=== PATIENT | female | born 1955 | race Caucasian/White ===

== ENCOUNTER 2017-06-04 05:31 | Emergency (ER) | payer BC, OTHER ==
[2017-06-04 05:59] VITALS: BP 126/80
--- NOTE | 2017-06-04 06:06 | Emergency Department Report ---
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 Patient denied a sore some flying by some insects in the triage room and she was working. Patient inspected her abdomen and saw a red bite lopez that began itching. Patient states she was admitted to one of the insects and looked like a brown blood with 4 legs. She denies fevers/chills/nausea/vomiting/abdominal pain chest pain or any other problems ED Past Medical Hx - Past Medical History Previous Medical History?: Yes Hx Hypertension: No Hx Congestive Heart Failure: No Hx Renal Disease: No Hx HIV: No Additional medical history: HIATAL HERNIA / IBS / RSD - Surgical History Past Surgical History?: Yes Hx Breast Surgery: Yes (EXCISION CYST RIGHT BREAST IN 1969) Additional Surgical History: RECTOCELE/ENTEROCELE REPAIR. RIGHT 5TH TOE. Rt Wrist - Social History Smoking Status: Never Smoker Substance Use Type: None - Medications Home Medications: Home Medications Medication Instructions Recorded Confirmed Last Taken Type Aspirin EC [Aspirin Enteric Coated 160 mg PO QDAY 08/01/14 09/17/15 09/13/15 History TAB] Cholecalciferol (Vitamin D3) 2,000 unit PO QDAY 08/01/14 09/17/15 3 Days Ago History [Vitamin D3 2,000 unit] Docusate Sodium [Colace CAP] 100 mg PO QDAY 08/01/14 09/17/15 3 Days Ago History Ascorbic Acid [Vitamin C] 500 mg PO QDAY 09/17/15 09/17/15 3 Days Ago History [place]-3 Fatty Acids/Fish Oil [Fish 1 each PO QDAY 09/17/15 09/17/15 3 Days Ago History Oil 1,000 mg Softgel] Ketorolac [Toradol] 10 mg PO Q6H PRN #10 tablet 09/19/15 Unknown Rx HYDROcodone/APAP 7.5-325 [[place] 1 each PO Q8HR PRN #20 tablet 03/01/16 Unknown Rx 7.5/325] Hydrocortisone/Aloe Vera 1 applic TP TID #1 tube 06/04/17 Unknown Rx [Cortizone-10 1% Creme] Neomy/Baci/Polymyx/Hc Top Oint 1 applic TP TID #30 gm 06/04/17 Unknown Rx [Cortisporin TOPICAL Oint] diphenhydrAMINE [Benadryl CAP] 25 mg PO QHS PRN #30 capsule 06/04/17 Unknown Rx predniSONE [Deltasone] 5 mg PO QDAY #5 tab 06/04/17 Unknown Rx ED Review of Systems ROS: Stated complaint: BUG BITES Other details as noted in HPI Constitutional: denies: chills, fever Eyes: denies: eye pain, eye discharge, vision change ENT: denies: ear pain, throat pain Respiratory: denies: cough, shortness of breath, wheezing Cardiovascular: denies: chest pain, palpitations Endocrine: no symptoms reported Gastrointestinal: denies: abdominal pain, nausea, diarrhea Genitourinary: denies: urgency, dysuria, discharge Musculoskeletal: denies: back pain, joint swelling, arthralgia Skin: rash, pruritus. denies: lesions Neurological: denies: headache, weakness, numbness, paresthesias, confusion Psychiatric: denies: anxiety, depression Hematological/Lymphatic: denies: easy bleeding, easy bruising Physical Exam - Physical Exam Vital Signs: Vital Signs 06/04/17 05:54 Temperature 98.1 F Pulse Rate 89 Respiratory 18 Rate Blood Pressure 126/80 O2 Sat by Pulse 98 Oximetry Physical Exam: GENERAL: Alert and oriented x3, no apparent distress, Normal Gait, atraumatic. HEAD: Head is normocephalic and a-traumatic. EYES: Extra ocular muscles are intact. Pupils are equal, round, and reactive to light and accommodation. LUNGS: Symetrical with respiration, No wheezing, no rales or crackles, CTAB. HEART: S1, S2 present, regular rate and rhythm without murmur, no rubs, no gallops. Non tender to palpation ABDOMEN: No organomegaly was noted,Positive bowel sounds, soft, and non- distended. . Nontender to palpation on all Quadrants, multiple generalized pain lesions consistent with insect bites on left greater than right mid abdominal area. SKIN: Warm and dry, No lesions, No ulceration or induration present. Lesions as noted in the abdomen exam ED Course Vital Signs 06/04/17 05:54 Temperature 98.1 F Pulse Rate 89 Respiratory 18 Rate Blood Pressure 126/80 O2 Sat by Pulse 98 Oximetry ED Medical Decision Making - Medical Decision Making 62-year-old female presents to ED with insect bite ED course: Patient received prednisone and Claritin in ED Discussed patient to mixing picker tender medications as prescribed. Discussed the patient to use medication as prescribed. Discussed if any worsening symptoms to return to ED. Discussed patient to follow up with primary care physician in 3-5 days Vital signs are normal patient is in no acute distress She states she understands instructions given Critical care attestation.: If time is entered above; I have spent that time in minutes in the direct care of this critically ill patient, excluding procedure time. ED Disposition Clinical Impression: Insect bite (nonvenomous) of abdominal wall, initial encounter Disposition: TO HOME OR SELFCARE Is pt being admited?: No Does the pt Need Aspirin: No Condition: Stable Instructions: Insect Bite or Sting (ED) Prescriptions: diphenhydrAMINE [Benadryl CAP] 25 mg PO QHS PRN #30 capsule PRN Reason: Allergy Symptoms Hydrocortisone/Aloe Vera [Cortizone-10 1% Creme] 1 applic TP TID #1 tube Neomy/Baci/Polymyx/Hc Top Oint [Cortisporin TOPICAL Oint] 1 applic TP TID #30 gm predniSONE [Deltasone] 5 mg PO QDAY #5 tab Referrals: PRIMARY CARE, [Primary Care Provider] - 3-5 Days Forms: Work/School Release Form(ED) Time of Disposition: 06:11
[2017-06-04] MEDS ORDERED: CLARITIN PO ONE (06:10)
[2017-06-04] MEDS ORDERED: DELTASONE PO ONE (06:10)
== END 2017-06-04 06:31 | disposition home or self-care (01) ==
LOC: ED 05:31
DX: S30.861A Insect bite (nonvenomous) of abdominal wall, initial encounter (principal); Z79.82 Long term (current) use of aspirin; W57.XXXA Bitten or stung by nonvenomous insect and other nonvenomous arthropods, initial encounter; Y93.89 Activity, other specified; Y92.89 Other specified places as the place of occurrence of the external cause; Y99.8 Other external cause status
CPT/HCPCS: 99282; J7512

== ENCOUNTER 2021-12-19 09:10 | Outpatient (CLI) | payer MEDICARE | END 2021-12-19 09:11 | disposition home or self-care (01) | LOC: LABHHL 09:10 | PROVIDERS: ATTEND Surgery | DX: N63.14 Unspecified lump in the right breast, lower inner quadrant (principal) | CPT/HCPCS: 88305 ==

== ENCOUNTER 2021-12-24 08:51 | Outpatient (CLI) | payer OTHER, MEDICARE ==
--- NOTE | 2021-12-24 16:02 | Operative Report ---
Operative Report Operative Report: Procedure Date: 2021-12-24 Side: Left Facility: [facility] - Office Indication: Asymmetric density Consent: Written - Including description, alternatives, risks Pre-proc. Imaging: Mammogram, Ultrasound BIRADS: 4 - Suspicious Lesion Location: 3 o'clock Imaging Approach: Craniocaudad from above Skin Prep: Chlorhexidine gluconate Anesthesia Type: Lidocaine with epinephrine Amount: 6 - 10 cc Stereotactic Unit: [place] upright Biopsy Device: Mammotome Gauge/Size: 8 Number of Cores: 11 - 15 Targeting Accuracy: Excellent Specimen Radiograph: Targeted density or biopsy marker visualized Biopsy Marker: Mammomark linear marker Marker Place. Conf.: Post procedure mammogram Marker Position: At biopsy site Incision Closure: Sutures Planned Follow-up: Office appointment given Immed. Complications: None
--- NOTE | 2021-12-25 08:53 | Mammography Report ---
DIGITAL DIAGNOSTIC MAMMOGRAM WITH CAD , 12/25/2021 CLINICAL INFORMATION / INDICATION: Patient is status post biopsy of the medial right breast at 3:00. This is a postprocedure mammogram. TECHNIQUE: Digital right mammographic imaging was performed. This examination was interpreted with the benefit of Computer-aided Detection analysis. COMPARISON: Prior mammogram 11/01/2021 as well as older mammogram 11/21/2013 FINDINGS: Breast Density: The breasts are heterogeneously dense, which may obscure small masses. Postprocedure mammogram shows 2 biopsy clips in the medial right breast, middle depth. One of the clips is at appro ximately 2:00, with a second clip at 3:00. This clips appear to be in satisfactory position based on prebiopsy recommendation. Postsurgical scar is present in the upper outer quadrant of the right breast as noted on prior mammog jasbir. IMPRESSION: Postprocedure mammogram shows adequate clip placement in the medial right breast as outli rachel above. Physician performing percutaneous biopsies were provided pathology correlation. Follow up recommendation: No recall. Post biopsy imaging. A "normal" or negative report should not discourage follow up or biopsy of a clinically significant f inding. A written summary of these findings will be mailed to the patient. The patient will be entered into a mammography reporting system which will generate a reminder letter for the patient's next appointmen t at the appropriate interval. According to the [employer], yearly mammograms are recommended starting at age 40 and continuing as long as a woman is in good health. Breast MRI is recommended for women with an fabricio roximately 20-25% or greater lifetime risk of breast cancer, including women with a strong family his tory of breast or ovarian cancer and women who have been treated for Hodgkin's disease. Signer Name: Ana Smith MD Signed: 12/25/2021 8:49 AM Workstation Name: [email or web address]
== END 2021-12-24 08:52 | disposition home or self-care (01) ==
LOC: SPVWC 08:51
PROVIDERS: ATTEND Surgery
DX: N63.14 Unspecified lump in the right breast, lower inner quadrant (principal); R92.8 Other abnormal and inconclusive findings on diagnostic imaging of breast; R92.0 Mammographic microcalcification found on diagnostic imaging of breast; E78.00 Pure hypercholesterolemia, unspecified; K21.9 Gastro-esophageal reflux disease without esophagitis; Z98.51 Tubal ligation status; Z98.890 Other specified postprocedural states; Z87.891 Personal history of nicotine dependence
CPT/HCPCS: 19081; 77065; 88305; A4648